=== PATIENT | male | born 1985 ===

== ENCOUNTER 2018-08-27 00:48 | Inpatient (IN) ==
[2018-08-27] MEDS ORDERED: SODIUM CHLORIDE 0.9% 1,000 ML IV STA (02:23)
[2018-08-27] MEDS ORDERED: GLUCAGON 1 MG VIAL IM PRN (02:37)
[2018-08-27] MEDS ORDERED: ACETAMINOPHEN 325 MG TABLET PO PRN (02:37)
[2018-08-27] MEDS ORDERED: NICOTINE 21 MG/24 HR PATCH TRANSDERM PRN (02:37)
[2018-08-27] MEDS ORDERED: MORPHINE 4 MG/1 ML VIAL IV PRN (02:37)
[2018-08-27] MEDS ORDERED: DEXTROSE 50% 25 GM/50 ML VIAL IV PRN (02:37)
[2018-08-27] MEDS ORDERED: ONDANSETRON 4 MG/2 ML VIAL IV PRN (02:37)
[2018-08-27 02:55] LABS: Basophils % 0.2 % (0.0-0.8); Eosinophils # 0.1 10*3/uL (0.0-0.87); Eosinophils % 0.6 % (0.00-10.9); Immature Granulocytes % 0.4 %; Immature Granulocytes Absolute 0.04 #; Lymphocytes # 1.5 10*3/uL (1.4-4.0); Lymphocytes % 16.8 % (21.2-54.2); Mean Corpuscular HGB Conc 32.6 GM/DL (32-36); Mean Corpuscular Volume 91.5 FL (87-102); Mean Platelet Volume 10.9 FL (9.6-12.0); Monocytes % 4.6 % (1.7-12.7); Neutrophils % 77.4 % (38.7-73.9); Platelet Count 245 T/CUMM (130-400); Red Blood Count 5.03 MC/CUMM (3.8-5.5); Red Cell Distribution Width 12.6 % (9.3-17.3)
[2018-08-27 03:16] LABS: Albumin 3.7 G/DL (3.4-5.0); Bilirubin,Total 0.8 MG/DL (0.2-1.0); Calcium 8.7 MG/DL (8.5-10.1); Osmolality,Calculated 286.5 MOS/KG (273-304); Total Protein 7.8 G/DL (6.4-8.3)
[2018-08-27] MEDS: CIPROFLOXACIN INJ 400 MG in PREMIX 1 EACH IV SCH ×2 (05:11→17:42)
[2018-08-27 05:38] LABS: Apearance,Urine CLOUDY (Clear); Bacteria,Urine Few /HPF (Few); Bilirubin,Urine Negative (Negative); Blood, Urine Small mg/dL (Negative); Glucose,Urine (UA) >=500 mg/dL (Negative); Ketones,Urine 20 mg/dL (Negative); Mucus,Urine Occasional /LPF (Occasional); Nitrite,Urine Negative (Negative); Protein,Urine Negative; RBC,Urine 37 /HPF (0-4); Squamous Epithelial Cell,Urine Occasional /HPF (0-10); Urine Color Red (Yellow); Urine Urobilinogen < 2.0 EU/DL (0.2-1.0); WBC,Urine 46 /HPF (0-6)
[2018-08-27] MEDS: metroNIDAZOLE INJ 500 MG in PREMIX 1 EACH IV SCH ×2 (06:31→19:55)
[2018-08-27] MEDS: INSULIN REGULAR 100 UNIT/ML SUBCUT SCH ×4 (09:56→21:09)
[2018-08-27] MEDS: ASPIRIN EC 81 MG TABLET PO SCH (09:58)
[2018-08-27] MEDS: INSULIN GLARGINE 100 UNIT/ML SUBCUT SCH (09:59)
[2018-08-27] MEDS ORDERED: INSULIN GLARGINE 100 UNIT/ML SUBCUT SCH (21:00)
[2018-08-28] MEDS: CIPROFLOXACIN INJ 400 MG in PREMIX 1 EACH IV SCH ×2 (04:09→17:36)
[2018-08-28] MEDS: metroNIDAZOLE INJ 500 MG in PREMIX 1 EACH IV SCH ×2 (05:14→20:04)
[2018-08-28 05:23] LABS: Basophils % 0.3 % (0.0-0.8); Eosinophils # 0.3 10*3/uL (0.0-0.87); Hematocrit 40.4 VOL% (42.0-52.0); Hemoglobin 13.3 GM/DL (14.0-18.0); Immature Granulocytes % 0.3 %; Immature Granulocytes Absolute 0.02 #; Lymphocytes # 2.3 10*3/uL (1.4-4.0); Lymphocytes % 33.4 % (21.2-54.2); Mean Corpuscular HGB Conc 32.9 GM/DL (32-36); Mean Corpuscular Volume 91.4 FL (87-102); Mean Platelet Volume 11.1 FL (9.6-12.0); Monocytes % 7.9 % (1.7-12.7); Neutrophils % 54.1 % (38.7-73.9); Platelet Count 237 T/CUMM (130-400); Red Blood Count 4.42 MC/CUMM (3.8-5.5); Red Cell Distribution Width 12.6 % (9.3-17.3); White Blood Count 6.9 T/CUMM (4-12)
[2018-08-28 05:37] LABS: Calcium 8.3 MG/DL (8.5-10.1)
[2018-08-28] MEDS: ASPIRIN EC 81 MG TABLET PO SCH (09:50)
[2018-08-28] MEDS: INSULIN REGULAR 100 UNIT/ML SUBCUT SCH ×4 (09:50→20:13)
[2018-08-28] MEDS: INSULIN GLARGINE 100 UNIT/ML SUBCUT SCH (09:51)
[2018-08-28] MEDS: VANCOMYCIN INJ 2,000 MG in SODIUM CHLORIDE 0.9% 500 ML IV SCH ×2 (12:42→21:22)
[2018-08-28 18:10] LABS: Apearance,Urine CLEAR (Clear); Bacteria,Urine Occasional /HPF (Few); Bilirubin,Urine Negative (Negative); Blood, Urine Negative (Negative); Glucose,Urine (UA) 150 mg/dL (Negative); Ketones,Urine Negative (Negative); Mucus,Urine Occasional /LPF (Occasional); Nitrite,Urine Negative (Negative); Protein,Urine Negative; RBC,Urine 3 /HPF (0-4); Squamous Epithelial Cell,Urine Occasional /HPF (0-10); Urine Color Yellow (Yellow); Urine Specific Gravity 1.012 (1.001-1.035); Urine Urobilinogen < 2.0 EU/DL (0.2-1.0); WBC,Urine 9 /HPF (0-6)
[2018-08-29] MEDS: CIPROFLOXACIN INJ 400 MG in PREMIX 1 EACH IV SCH ×2 (05:01→17:17)
[2018-08-29 05:31] LABS: Basophils % 0.4 % (0.0-0.8); Eosinophils # 0.2 10*3/uL (0.0-0.87); Eosinophils % 3.3 % (0.00-10.9); Hematocrit 42.5 VOL% (42.0-52.0); Hemoglobin 13.9 GM/DL (14.0-18.0); Immature Granulocytes % 0.4 %; Immature Granulocytes Absolute 0.02 #; Lymphocytes # 1.5 10*3/uL (1.4-4.0); Mean Corpuscular HGB Conc 32.7 GM/DL (32-36); Mean Corpuscular Volume 91.6 FL (87-102); Mean Platelet Volume 10.6 FL (9.6-12.0); Monocytes % 7.6 % (1.7-12.7); Neutrophils % 61.3 % (38.7-73.9); Platelet Count 242 T/CUMM (130-400); Red Blood Count 4.64 MC/CUMM (3.8-5.5); Red Cell Distribution Width 12.7 % (9.3-17.3); White Blood Count 5.5 T/CUMM (4-12)
[2018-08-29 05:50] LABS: Calcium 8.2 MG/DL (8.5-10.1); Osmolality,Calculated 287.8 MOS/KG (273-304)
[2018-08-29] MEDS: metroNIDAZOLE INJ 500 MG in PREMIX 1 EACH IV SCH ×2 (06:13→18:54)
[2018-08-29] MEDS: INSULIN REGULAR 100 UNIT/ML SUBCUT SCH ×4 (08:13→20:31)
[2018-08-29] MEDS: INSULIN GLARGINE 100 UNIT/ML SUBCUT SCH (09:22)
[2018-08-29] MEDS: ASPIRIN EC 81 MG TABLET PO SCH (09:22)
[2018-08-29] MEDS: VANCOMYCIN INJ 2,000 MG in SODIUM CHLORIDE 0.9% 500 ML IV SCH ×2 (09:23→23:02)
[2018-08-29] MEDS: ENOXAPARIN 40 MG/0.4 ML SYRINGE SUBCUT SCH (17:16)
[2018-08-30] MEDS: CIPROFLOXACIN INJ 400 MG in PREMIX 1 EACH IV SCH (04:39)
[2018-08-30 05:22] LABS: Basophils % 0.4 % (0.0-0.8); Eosinophils # 0.2 10*3/uL (0.0-0.87); Eosinophils % 3.4 % (0.00-10.9); Hematocrit 40.9 VOL% (42.0-52.0); Hemoglobin 13.5 GM/DL (14.0-18.0); Immature Granulocytes % 0.5 %; Immature Granulocytes Absolute 0.03 #; Lymphocytes # 1.7 10*3/uL (1.4-4.0); Lymphocytes % 30.1 % (21.2-54.2); Mean Corpuscular Volume 90.5 FL (87-102); Mean Platelet Volume 10.9 FL (9.6-12.0); Monocytes % 7.7 % (1.7-12.7); Neutrophils % 57.9 % (38.7-73.9); Platelet Count 246 T/CUMM (130-400); Red Blood Count 4.52 MC/CUMM (3.8-5.5); Red Cell Distribution Width 12.7 % (9.3-17.3); White Blood Count 5.6 T/CUMM (4-12)
[2018-08-30 05:39] LABS: Calcium 8.2 MG/DL (8.5-10.1)
[2018-08-30] MEDS: metroNIDAZOLE INJ 500 MG in PREMIX 1 EACH IV SCH (06:27)
[2018-08-30] MEDS: INSULIN REGULAR 100 UNIT/ML SUBCUT SCH ×2 (07:20→11:40)
[2018-08-30] MEDS: ASPIRIN EC 81 MG TABLET PO SCH (09:07)
[2018-08-30] MEDS: INSULIN GLARGINE 100 UNIT/ML SUBCUT SCH (09:07)
[2018-08-30] MEDS: POTASSIUM CHLORIDE 20 MEQ TABLET PO PRN ×2 (09:07→11:41)
[2018-08-30] MEDS: VANCOMYCIN INJ 2,000 MG in SODIUM CHLORIDE 0.9% 500 ML IV SCH (09:08)
[2018-08-30 11:12] VITALS: BP 134/71
[2018-08-30] MEDS: ENOXAPARIN 40 MG/0.4 ML SYRINGE SUBCUT SCH (14:41)
== END 2018-08-30 15:18 | disposition home or self-care (01) | DRG 392 ==
LOC: EDUNIT# → N.ED 00:48 → N.EDINP 00:48 → SUATTDRO 02:37 → N.3E 02:49
PROVIDERS: ATTEND Internal Medicine